=== PATIENT | male | born 1995 | race African-American/Black ===

== ENCOUNTER 2019-01-31 19:56 | Emergency (ER) | payer SELFPAY ==
[~2019-01-31] VITALS: Ht 180.3 cm; Wt 64.0 kg
[2019-01-31] MEDS ORDERED: METHYLPREDNISOLONE SOD SUCC 125 MG/2 ML VIAL IV STA (20:34)
[2019-01-31] MEDS ORDERED: SODIUM CHLORIDE 0.9% 1,000 ML IV ONE ×2 (20:34→22:07)
[2019-01-31] MEDS ORDERED: IPRATROPIUM/ALBUTEROL 0.5-3(2.5)MG/3ML NEB HHN ONE (20:45)
[2019-01-31] MEDS ORDERED: LEVOFLOXACIN 500MG PREMIX 100 ML IV ONE (20:45)
[2019-01-31] MEDS ORDERED: MAGNESIUM 2 G PREMIX 50 ML IV ONE (20:45)
[2019-01-31 20:54] LABS: HEMATOCRIT. 48.3 % (42.0-52.0); HEMOGLOBIN. 15.9 g/dL (14.0-18.0); MEAN CORPUSCULAR HEMOGLOBIN 28.3 pg (28.0-32.0); MEAN CORPUSCULAR VOLUME 85.9 fL (80.0-94.0); MEAN PLATELET VOLUME 8.9 fl (7.4-10.4); PLATELET 276 x1000/uL (130-400); RED BLOOD CELL COUNT 5.63 mill/uL (4.7-6.1); RED CELL DISTRIBUTION WIDTH 14.7 % (11.6-14.6)
[2019-01-31 20:57] LABS: CHLORIDE 110 mEq/L (98-107)
[2019-01-31 21:36] LABS: PLATELET ESTIMATE NORMAL
[2019-01-31] MEDS ORDERED: ACETAMINOPHEN 325MG TABLET PO ONE (21:45)
[2019-01-31 22:59] LABS: *BENZODIAZEPINES SCREEN URINE NEGATIVE (NEGATIVE); *COCAINE SCREEN URINE NEGATIVE (NEGATIVE)
[2019-01-31 23:00] LABS: *AMPHETAMINES SCREEN URINE NEGATIVE (NEGATIVE); *BARBITURATES SCREEN URINE NEGATIVE (NEGATIVE); CANNABINOID URINE SCREEN PRESUMTIVE POSITIVE (NEGATIVE); METHADONE URINE SCREEN NEGATIVE (NEGATIVE); OPIATES URINE SCREEN NEGATIVE (NEGATIVE); PHENCYCLIDINE URINE SCREEN NEGATIVE (NEGATIVE)
[2019-01-31 23:33] VITALS: BP 100/69
== END 2019-01-31 23:58 | disposition home or self-care (01) ==
LOC: ER 23:57
DX: J45.909 Unspecified asthma, uncomplicated (principal); R50.9 Fever, unspecified; F17.200 Nicotine dependence, unspecified, uncomplicated; F12.10 Cannabis abuse, uncomplicated
CPT/HCPCS: 36415; 71045; 80053; 80305; 83880; 84484; 85025; 86850; 86900; 86901; 87040; 94640; 96365; 96366; 96368; 96375; 99284; J1956; J2930; J3475; J7030; J7040; J7620; Z7610

== ENCOUNTER 2020-03-28 19:57 | Emergency (ER) | payer SELFPAY ==
[~2020-03-28] VITALS: Ht 177.8 cm; Wt 64.0 kg
[2020-03-28] MEDS ORDERED: IBUPROFEN 600MG TABLET PO ONE (20:45)
[2020-03-28 20:48] VITALS: BP 145/76
== END 2020-03-28 22:16 | disposition left against medical advice (07) ==
LOC: ER 19:57
DX: S62.524A Nondisplaced fracture of distal phalanx of right thumb, initial encounter for closed fracture (principal); J45.909 Unspecified asthma, uncomplicated; F12.10 Cannabis abuse, uncomplicated; Z91.013 Allergy to seafood; V03.10XA Pedestrian on foot injured in collision with car, pick-up truck or van in traffic accident, initial encounter; Y93.89 Activity, other specified; Y92.488 Other paved roadways as the place of occurrence of the external cause
CPT/HCPCS: 73110; 73130; 99284